=== PATIENT | female | born 2000 | race Caucasian/White ===

== ENCOUNTER 2021-03-31 02:15 | Emergency (ER) | payer SELFPAY ==
[2021-03-31] MEDS ORDERED: Orphenadrine 100 MG Tab.ER PO STA (02:51)
[2021-03-31] MEDS ORDERED: Ibuprofen 600 MG Tab PO ONE (03:32)
== END 2021-03-31 03:52 | disposition home or self-care (01) ==
LOC: JD.ED 02:15
DX: G44.209 Tension-type headache, unspecified, not intractable (principal); E66.9 Obesity, unspecified; Z68.41 Body mass index [BMI] 40.0-44.9, adult; Z86.16 Personal history of COVID-19
CPT/HCPCS: 70450; 99284; A9270